=== PATIENT | male | born 1990 | race Hispanic/Latino ===

== ENCOUNTER 2020-11-12 19:52 | Emergency (ER) | payer SELFPAY ==
[2020-11-12 19:58] VITALS: BP 133/90; PULSE 109; RESP 18; TEMP 37.4; O2SAT 98; BMI 25.8
[2020-11-12 20:02] VITALS: BP 133/90; PULSE 109; RESP 18; TEMP 37.4; O2SAT 98
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
[2020-11-12 21:21] VITALS: BP 132/81; PULSE 91; RESP 16; O2SAT 98
[2020-11-12 23:04] VITALS: BP 132/81; PULSE 91; RESP 16; O2SAT 98
--- NOTE | 2020-11-12 23:05 | ED.RN ---
DR. HANNA TOLD PT THAT THE E.D. WOULD PAY FOR HIS RIDE HOME.
== END 2020-11-12 23:06 | disposition home or self-care (01) ==
PROVIDERS: Emergency Provider Emergency Medicine
DX: S06.0X9A Concussion with loss of consciousness of unspecified duration, initial encounter (principal); S02.2XXA Fracture of nasal bones, initial encounter for closed fracture; V19.88XA Pedal cyclist (driver) (passenger) injured in other specified transport accidents, initial encounter; Y93.55 Activity, bike riding; Y92.9 Unspecified place or not applicable; Y99.8 Other external cause status; F17.210 Nicotine dependence, cigarettes, uncomplicated
CPT/HCPCS: 70450; 70486; 72125; 99284; A4216